=== PATIENT | female | born 1985 | race Caucasian/White ===

== ENCOUNTER 2018-04-29 22:35 | Inpatient (IN) | payer BC ==
--- NOTE | 2018-04-29 23:19 | HP ---
General Information - Reason for Visit Patient reports contractions increasing in intensity and frequency since this afternoon. Small amount of bloody show. No leaking fluid. - General Information Maternal Age: 33 Grav: 2 Para: 1 SAB: 0 IEA: 0 Estimated Due Date: 04/16/18 Determined By: Early Ultrasound Gestational Age in Weeks/Days: 41+6 Maternal Blood Type and Rh: A Negative - Results this Serology/RPR Result: Non-Reactive Rubella Result: Immune HBsAg Result: Negative HIV Result: Negative GBS Culture Result: Negative Past Medical History Delivery History: Hx Complicated Vaginal Delivery Delivery History Comment: PPH 800ml with SVB in 2016 Pertinent Past Medical History: Non-Contributory Past Medical History Comment: Depression Pertinent Past Surgical History: See Records Past Surgical History Comment: Lap ovarian cystectomy 2010 Pertinent Family History: Non-Contributory Family History Comment: Hypothyroidism Down syndrome Stroke Alzheimer's Brain Ca - Antepartal Records Antepartal Records: Reviewed, Uncomplicated Review of Systems Constitutional: Uncomfortable CV Complaint: No Respiratory: Shortness of Breath: No Gastrointestinal: No Nausea/Vomiting, Normal Bowel Movement, Soft Stool Genitourinary: No Dysuria, No Leaking Fluid, Spotting Musculoskeletal: Contractions Neurological: No Headache, No Visual Changes Movement: Normal Exam Allergies/Adverse Reactions: Allergies No Known Allergies Allergy (Verified 08/07/15 08:09) BP 104/73 T 97.4 HR 67 RR 18 - Measurements Height: 5 ft 5 in Weight: 125 lb Body Mass Index (BMI): 20.7 Pre- Weight: 116 lb - Exam Breast: Breast Exam Deferred CVA: No CVA Tenderness Extremities: No Edema Heart: Normal Rhythm/Heart Sounds HEENT: No Significant Findings Lungs: Clear Bilaterally Rectal: Rectal Exam Deferred Reflexes: DTR 2+, - - no clonus Thyroid: - - WNL on entry to care - Abdominal Exam Abdomen Exam: Non-Tender, Fundal Height Consistent with Dates - Ultrasound/Biophysical Profile Ultrasound Status: Not Done Targeted Exam Findings See L&D Outpatient Visit Provider Note for Findings: N/A Estimated Weight: 8.5 lb Cervical Exam: 5cm Effacement: 100% Station: 0 Presenting Part: Vertex Membrane Status: Intact Bleeding/Discharge: Bloody Show EFM Findings - External Monitor Findings Baseline Heart Rate: 135 External Monitor Findings: Accelerations Present, No Pattern of Variable or Late Decelerations, Variability Moderate Contractions: Regular, Moderate, Strong, 45-90 Seconds Contraction Frequency: Q 2-3 min Assessment/Plan - Assessment IUP @ 41+6 weeks gestation. IBOW. No evidence metabolic acidemia - Plan Plan: Admit - Anticipate Vaginal Delivery Plan Comment: Admit to L&D. Initiate IV access. Discussed use of nitrous if patient desires. Uncertain if she may want labor epidural. To start with hydrotherapy. Anticipate SVB. - Date/Time of Admission Date of Admission: 04/29/18 Time of Admission: 23:13
[2018-04-29] MEDS ORDERED: Calcium Carbonate CHEW TAB* 500 MG (TUMS) PO PRN (23:41)
[2018-04-30 00:15] LABS: ABS Basophils 0.1 10^3/ul (0-0.2); ABS Eosinophils 0 10^3/ul (0-0.6); ABS Lymphocytes 2.1 10^3/ul (1.0-4.8); ABS Monocytes 0.7 10^3/ul (0-0.8); ABS Neutrophils 11.8 10^3/ul (1.5-7.7); ABS Nucleated RBC 0 10^3/ul; Eosinophil % 0.1 % (0-6); Hematocrit 40 % (35-47); Hemoglobin 13.7 g/dl (12.0-16.0); Mean Corpuscular HGB Conc 34 g/dl (31-36); Mean Corpuscular Hemoglobin 32 pg (27-31); Mean Corpuscular Volume 95 fL (80-97); Mean Platelet Volume 7.6 fL (7.4-10.4); Nucleated Red Blood Cells % 0.1; Platelet Count 266 10^3/ul (150-450); Red Blood Count 4.24 10^6/ul (4.00-5.40); Red Cell Distribution Width 14 % (10.5-15); White Blood Count 14.6 10^3/ul (3.5-10.8)
[2018-04-30] MEDS ORDERED: Oxytocin in LR* 20 UNITS/1,000 ML BAG IVPB ONE (00:36)
[2018-04-30] MEDS ORDERED: Dibucaine 1% 28.35 GM TUBE PR PRN (01:17)
[2018-04-30] MEDS ORDERED: Glycerin ADULT SUPP PR PRN (01:17)
[2018-04-30] MEDS ORDERED: Acetaminophen TAB* 325 MG PO PRN (01:17)
[2018-04-30] MEDS ORDERED: Witch Hazel PAD* JAR TOPICAL PRN (01:17)
[2018-04-30] MEDS ORDERED: Ibuprofen TAB* 600 MG PO PRN (01:17)
[2018-04-30] MEDS ORDERED: Oxytocin in LR* 20 UNITS/1,000 ML BAG IVPB SCH (02:00)
[2018-04-30] MEDS ORDERED: Loperamide CAP* 2 MG PO ONE (03:37)
[2018-04-30] MEDS ORDERED: Loperamide CAP* 2 MG PO PRN (03:37)
--- NOTE | 2018-04-30 07:56 | PROCNOTE ---
[facility] OB: Delivery Note - Delivery A Date of : 04/30/18 Time of : 00:34 [place] Weight at : 9 lb 10 oz Score 1 Minute: 9 Score 5 Minutes: 9 Gestational Age in Weeks and Days at Delivery: 42 Weeks and 0 Days Delivery Method: Spontaneous Vaginal Labor: Spontaneous Did Patient attempt ?: N/A, No Previous Amniotic Fluid: Clear Estimated Blood Loss: 250 Anesthesia/Analgesia: None Delivered By: Shalini Gauthier - Nursery Level of Nursery: Regular/Bedside - Perineum Perineal Injury: Right Mediolateral Perineal Injury Comment: Periurethral/labial abrasions, hemostatic and not repaired Perineal Repair: By Delivering Practioner - Events Delivery Events of Note: Pitocin Only After Delivery - Additional Delivery Notes Additional Delivery Notes: Patient admitted in active labor. Used hydrotherapy with good effect. Patient suspected SROM in tub and was moved to bed with sudden urge to push. LOL 4'10", pushed 22 min. Right mediolateral epis cut after prolongued and no tearing of perineum. Slow, controlled delivery of head in OA to BRIANNA position @ 0034. Loose nuchal unwrapped on perineum, shoulders followed smoothly with maternal efforts. True knot in cord. Baby to maternal abdomen with spontaneous cry, HR >110. Cord clamped doubly and cut by FOB once pulsations ceased. Fundus firm with pitocin infusing. Placenta delivered with gentle cord traction @ 0040. Repair with 3-0 Rapide under infiltration with 1% lidocaine. Baby at breast to initiate . Baby name tbd.
[2018-04-30] MEDS: Docusate CAP* 100 MG PO SCH ×2 (18:31→19:12)
[2018-04-30] MEDS ORDERED: Simethicone TAB* 80 MG TAB.CHEW PO PRN (20:24)
[2018-05-01] MEDS ORDERED: RHO D Immune Globulin (HUMAN)* 300 MCG = 1,500 I.U. INJ IM ONE (06:00)
[2018-05-01 06:41] LABS: ABS Basophils 0 10^3/ul (0-0.2); ABS Eosinophils 0 10^3/ul (0-0.6); ABS Lymphocytes 1.6 10^3/ul (1.0-4.8); ABS Monocytes 0.6 10^3/ul (0-0.8); ABS Neutrophils 7.7 10^3/ul (1.5-7.7); ABS Nucleated RBC 0 10^3/ul; Eosinophil % 0.4 % (0-6); Hematocrit 34 % (35-47); Hemoglobin 11.5 g/dl (12.0-16.0); Lymphocyte % 16.1 % (25-47); Mean Corpuscular HGB Conc 34 g/dl (31-36); Mean Corpuscular Hemoglobin 33 pg (27-31); Mean Corpuscular Volume 96 fL (80-97); Mean Platelet Volume 6.9 fL (7.4-10.4); Nucleated Red Blood Cells % 0; Platelet Count 195 10^3/ul (150-450); Red Blood Count 3.48 10^6/ul (4.00-5.40); Red Cell Distribution Width 14 % (10.5-15)
[2018-05-01 08:29] VITALS: BP 105/66
[2018-05-01] MEDS ORDERED: Ferrous Gluconate TAB* 324 MG TAB PO SCH (09:00)
== END 2018-05-01 11:58 | disposition home or self-care (01) | DRG 560 ==
LOC: MCHOBOUT 22:35 → MCHOB 23:13
PROVIDERS: ADMIT Midwife; ATTEND Midwife
PROC: 10E0XZZ Delivery of Products of Conception, External Approach (ICD-10-PCS; principal; 2018-04-29)
PROC: 4A1HXCZ Monitoring of Products of Conception, Cardiac Rate, External Approach (ICD-10-PCS; 2018-04-29)
PROC: 0W8NXZZ Division of Female Perineum, External Approach (ICD-10-PCS; 2018-04-29)
DX: O48.0 Post-term pregnancy (principal); Z37.0 Single live birth; O69.2XX0 Labor and delivery complicated by other cord entanglement, with compression, not applicable or unspecified; O69.81X0 Labor and delivery complicated by cord around neck, without compression, not applicable or unspecified; Z3A.41 41 weeks gestation of pregnancy; O71.82 Other specified trauma to perineum and vulva; O63.1 Prolonged second stage (of labor); O70.0 First degree perineal laceration during delivery; Z88.5 Allergy status to narcotic agent; Z67.11 Type A blood, Rh negative
CPT/HCPCS: 36415; 85025; 85461; 86850; 86900; 86901; A9270-GY; J2790